=== PATIENT | male | born 1995 | race Asian ===

== ENCOUNTER 2022-02-28 08:39 | Day surgery (SDC) | payer BC ==
[2022-02-28] MEDS ORDERED: Midazolam 1 MG/ML 2 ML SDV IV ONE (08:40)
[2022-02-28] MEDS ORDERED: Propofol 200 MG/20 ML SDV IV ONE (08:40)
[2022-02-28] MEDS ORDERED: Lactated Ringers 1,000 ML IV SCH (08:45)
[2022-02-28] MEDS ORDERED: Sodium Chloride 0.9% 10 ML Syringe FLUSH PRN (08:45)
== END 2022-02-28 12:10 | disposition home or self-care (01) ==
LOC: FB.SDS 08:39
PROVIDERS: ATTEND Surgery
DX: T18.4XXA Foreign body in colon, initial encounter (principal); K62.5 Hemorrhage of anus and rectum; Z79.899 Other long term (current) drug therapy; Z98.890 Other specified postprocedural states
CPT/HCPCS: 00811; 45379; 87169; J2250; J2704; J7120